=== PATIENT | female | born 1995 | race Caucasian/White ===

== ENCOUNTER 2022-09-17 16:24 | Outpatient (RCR) | payer OTHER, BC, SELFPAY ==
[2022-09-07 10:56] VITALS: BP 115/65; PULSE 110
[2022-09-17 17:07] VITALS: BP 109/70; PULSE 83
== END 2022-09-26 07:39 | disposition home or self-care (01) ==
LOC: ANHOBOP 16:24
PROVIDERS: Visit Provider Obstetrics & Gynecology
DX: O26.893 Other specified pregnancy related conditions, third trimester (principal); L29.9 Pruritus, unspecified; Z3A.37 37 weeks gestation of pregnancy; Z3A.38 38 weeks gestation of pregnancy
CPT/HCPCS: 59025

== ENCOUNTER 2022-09-22 05:03 | Inpatient (IN) | payer OTHER, BC, SELFPAY ==
[2022-09-22] VITALS (79 sets, daily range): BP systolic 70–135; BP diastolic 39–86; PULSE 68–105; RESP 16; TEMP 36.2–37.3; O2SAT 97–100; BMI 37.0
--- NOTE | 2022-09-22 05:21 | LDADM ---
This patient, Jolanta Dyer, was admitted to Labor/Delivery/Recovery 106 on 09/22/22 at 05:03. Plans for labor, pain management and were discussed with patient. Patient/family oriented to hospital policies and general routines including ID bracelet, bed and alarms, visiting hours, pain management, procedures, bathroom and other care routines, personal items, smoking policy, room service/diet and guest tray routines, security routines, and visiting hours. Patient/Family are encouraged to report perceived risks to care and to ask questions if they do not understand what they are told or what they should do. See OBIX for further documentation.
[2022-09-22 05:40] LABS: Basophils Percent Auto 0.4 % (0.2-1.2); Eosinophils Absolute Auto 0.1 K/mm3 (0-0.3); Eosinophils Percent Auto 0.7 % (0-4.4); Hematocrit 36.3 % (37.0-47.0); Hemoglobin 12.6 g/dL (12.0-15.0); Immature Granulocyte Absolute 0.07 K/mm3 (0.00-0.031); Immature Granulocyte Percent A 0.7 % (0-0.5); Lymphocytes Absolute Auto 2.51 K/mm3 (0.9-3.2); Lymphocytes Percent Auto 24.2 % (18.3-44.2); Mean Corpuscular HGB Conc 34.7 g/dl (32-36); Mean Corpuscular Hemoglobin 29.6 pg (26-34); Mean Corpuscular Volume 85.2 fl (80-100); Monocytes Absolute Auto 0.6 K/mm3 (0.1-0.6); Monocytes Percent Auto 6.2 % (2.6-8.5); Neutrophils Percent Auto 67.8 % (45.5-73.1); Platelet Count Result 254 k/mm3 (150-375); Red Blood Count 4.26 M/mm3 (4.2-5.4); Red Cell Distribution Width 14.5 % (11.5-14.5); White Blood Count 10.4 K/mm3 (4.5-10.0)
[2022-09-22] MEDS: LACTATED RINGERS 1,000 ML 125 ML IV CONT ×3 (05:45→12:07)
[2022-09-22] MEDS: OXYTOCIN 30 UNITS/NS 500 ML 30 UNITS/500 ML BAG IV CONT (05:46)
--- NOTE | 2022-09-22 06:34 | WPDANESEPP ---
Anes - Eval Pre Procedure Procedure: labor epidural Date/Time: 09/22/22 06:34 Preop Diagnosis: pain during labor Pre Op Diagnosis: IOL Patient Data Age: 27 Gender: F Height: 1.68 m Weight: 104 kg Last Vital Signs Temp 37.3 C 09/22/22 05:30 Pulse 89 09/22/22 06:30 Resp 16 09/22/22 05:30 BP 133/83 09/22/22 06:30 O2 Del Method Room Air 09/22/22 05:20 Allergies Allergy/AdvReac Type Severity Reaction Status Date / Time No Known Drug Allergies Allergy Unknown Unknown Verified 09/22/22 05:30 Home Medications Medication Instructions Recorded Confirmed Type Classic 1 tablet DAILY 09/22/22 09/22/22 History Laboratory Tests 09/22/22 09/22/22 09/22/22 05:34 05:34 05:34 WBC 10.4 K/mm3 H K/mm3 (4.5-10.0) RBC 4.26 M/mm3 M/mm3 (4.2-5.4) Hgb 12.6 g/dL g/dL (12.0-15.0) Hct 36.3 % L % (37.0-47.0) MCV 85.2 fl fl (80-100) MCH 29.6 pg pg (26-34) MCHC 34.7 g/dl g/dl (32-36) RDW 14.5 % % (11.5-14.5) Plt Count 254 k/mm3 k/mm3 (150-375) MPV 10.0 fl fl (7.4-10.4) Immature Gran % (Auto) 0.7 % H % (0-0.5) Neut % (Auto) 67.8 % % (45.5-73.1) Lymph % (Auto) 24.2 % % (18.3-44.2) [place] % (Auto) 6.2 % % (2.6-8.5) Eos % (Auto) 0.7 % % (0-4.4) Baso % (Auto) 0.4 % % (0.2-1.2) Lymph # (Auto) 2.51 K/mm3 K/mm3 (0.9-3.2) [place] # (Auto) 0.6 K/mm3 K/mm3 (0.1-0.6) Eos # (Auto) 0.1 K/mm3 K/mm3 (0-0.3) Baso # (Auto) 0.0 K/mm3 K/mm3 (0.0-0.1) Abs Immat Gran (auto) 0.07 K/mm3 H K/mm3 (0.00-0.031) Absolute Neuts (auto) 7.0 K/mm3 H K/mm3 (1.3-6.7) Absolute Nucleated RBC 0.0 K/mm3 K/mm3 (0.0-0.012) Nucleated RBC % 0.0 % % (0.0-0.2) RPR Pending Blood Type O Positive Antibody Screen Pending Patient hx anesthesia problems: none Family hx anesthesia problems: none Results Review: All pre-operative results and documents have been reviewed as part of the pre-operative evaluation. [facility] Past Medical History Medical History (Updated 09/22/22 @ 06:35 by Samantha Bell CRNA) IUP (intrauterine ), incidental Obesity Family History Family History (Updated 09/02/22 @ 14:33 by Kermit Chavez RN) Other Unknown family medical history Social History Social History Smoking status: Never smoker Substance use: never Lack of Transportation: No Lack of Food: Never True Current Housing: I Have Housing Concerned About Future Housing: No Difficulty Paying Gas/Electric Bills: No Difficulty Paying for Meds: No Currently Unemployed: No Education: High School Diploma/GED Difficulty w/ Childcare or Family Care: No Spiritual care concerns: No Exam Day of Procedure 09/22/22 06:34
[2022-09-22 07:07] LABS: Rapid Plasma Reagin Non-Reactive (NonReactive)
--- NOTE | 2022-09-22 08:58 | WPDOBADMIT ---
Obstetrics - Admit Note Admission Note: record reviewed. Additions to the history and/or subsequent changes in the physical findings follow. 27 y/o at 39 1/7 weeks here desiring induction of labor. GBS neg. Starting to feel contractions. AVSS NST reactive TOCO: contractions every 2-4 min ABD soft, nontender, gravid, vertex EXT nontender Cervix 3/50/-2. AROM with clear fluid. A: IUP a term with favorable cervix. P: She desires induction of labor. Oxytocin. Anticiptate .
--- NOTE | 2022-09-22 11:54 | PM.OBPNLAB ---
Pain Control Date/time seen: 09/22/22 11:54 Comments: Epidural helping with pain. Pelvic Exam Dilation (cm): 5 Effacement (%): 80 station: -1 Contractions Contraction frequency: 3 Status status: Category l Assessment and Plan Comments: IUPC placed. Continue oxytocin. Anticipate .
--- NOTE | 2022-09-22 14:20 | PM.OBPRVD ---
OB - Delivery Note Procedure Delivery date: 09/22/22 Procedure: Induction of labor with Delivery monitor: External FHT, External Uterine and Internal Uterine Route of delivery: Laceration Description: Periurethral (bilaterally) Delivery repair: vicryl (3-0) Specimen: Yes (cord blood) Quantitative Blood Loss (ml): 220 Anesthesia type: Epidural Disposition: PACU Complications: None Narrative: 27 y/o at 39 1/7 weeks gestation who presented to the hospital for induction of labor. Oxytocin was administered intravenously. Amniotomy was performed with return of clear fluid. She received an epidural for pain control. Her labor progressed and her cervix dilated completely. She pushed with good effort and delivered the 's head to the perineum, followed by the body. The nose and mouth were bulb suctioned. After a delay, the cord was clamped and cut. The was handed off the field. Cord blood was collected. The placenta delivered spontaneously and was grossly normal in appearance. The usual 3 vessel cord was noted. Bilateral periurethral lacerations were reapproximated using 3 0 Vicryl in interrupted [id number] fashion. Excellent hemostasis resulted as did excellent reapproximation of the normal anatomy. Needle and instrument counts were correct. The patient was taken to recovery room in stable condition. The went to the nursery in stable condition. I was present and scrubbed for the entire delivery. [place] Baby Date of : 09/22/22 Time of : 14:04 Weeks of gestation at delivery: 39 gender: Male Weight (pounds): 7 Weight (ounces): 8 presentation: vertex position: Right Occiput Anterior Placenta delivery description: Spontaneous and Normal Configuration Cord Vessel Description: 3 Vessels and Delayed Cord Clamping score one minute: 8 score five minutes: 9
--- NOTE | 2022-09-22 14:22 | P.DS_ITS ---
DS: Admitting Diagnosis Discharge Date 09/23/22 Admitting Diagnosis IUP at 39 1/7 weeks DS: Discharge Diagnosis Discharge Diagnosis (1) (normal spontaneous vaginal delivery): Code(s): O80 - Encounter for full-term uncomplicated delivery Status: Acute OB - DS: Summary OB Procedures : None OB Procedures Intrapartum: Spontaneous Vag Delivery OB Procedures: : None Time Spent with Patient Time attestation: Total time spent providing and/or coordinating discharge services: DS: Data Data Completed and Pending Labs on day of discharge: Labs from last 24 hours 09/22/22 09/22/22 09/22/22 05:34 05:34 05:34 WBC 10.4 H RBC 4.26 Hgb 12.6 Hct 36.3 L MCV 85.2 MCH 29.6 MCHC 34.7 RDW 14.5 Plt Count 254 MPV 10.0 Immature Gran % (Auto) 0.7 H Neut % (Auto) 67.8 Lymph % (Auto) 24.2 [place] % (Auto) 6.2 Eos % (Auto) 0.7 Baso % (Auto) 0.4 Lymph # (Auto) 2.51 [place] # (Auto) 0.6 Eos # (Auto) 0.1 Baso # (Auto) 0.0 Abs Immat Gran (auto) 0.07 H Absolute Neuts (auto) 7.0 H Absolute Nucleated RBC 0.0 Nucleated RBC % 0.0 RPR Non-reactive Blood Type O Positive Antibody Screen Negative Discharge Plan Discharge Attending physician on discharge: Jus Parnell Discharging Clinician: Jus Parnell Patient Disposition: Home, Self-Care Activity: pelvic rest Diet: regular Discharge Instructions: Call or return if temperature above 100.4? F, increased abdominal pain, increased vaginal bleeding or any new problems. Stand Alone Forms: General Discharge Information Follow-up/Referrals: Jus Parnell MD [Physician] - 6 Weeks Discharge Medications: New ibuprofen 600 mg tablet 600 mg PO Q6H PRN (Reason: cramps) Qty: 30 0RF Continued Classic 1 tablet DAILY Date of admission: 09/22/22 05:03 Primary Care Provider: UNKNOWN,DOCTOR Admitting Provider: Jus Parnell Attending physician on admission: Jus Parnell Condition: Stable
[2022-09-22] MEDS: OXYTOCIN 30 UNITS/NS 500 ML 30 UNITS/500 ML BAG 125 UNITS IV CONT (14:35)
[2022-09-22] MEDS: BENZOCAINE 20% AER SPR (*SP) 56 GM CAN 1 SPRAY TOPICAL (16:32)
[2022-09-22] MEDS: WITCH HAZEL 40 PADS 1 PAD TOPICAL (16:32)
--- NOTE | 2022-09-22 19:33 | OBPPTRN ---
1701 Patient transferred to post room #292 via W/C. Support person present. Oriented to unit, room, information board, rooming in, admission packet and security measures. Patient verbalizes understanding.
[2022-09-22] MEDS: IBUPROFEN 600 MG TABLET PO (19:57)
[2022-09-23] MEDS: IBUPROFEN 600 MG TABLET PO ×2 (04:35→11:46)
[2022-09-23 04:46] LABS: Hematocrit 31.2 % (37.0-47.0); Hemoglobin 10.7 g/dL (12.0-15.0)
[2022-09-23 07:50] VITALS: BP 116/70; PULSE 79; RESP 16; TEMP 37.3; O2SAT 100
--- NOTE | 2022-09-23 08:06 | WPDANLDPN2 ---
Anes-Prog Note L&D Date/Time: 09/23/22 08:06 Comfortable throughout: labor Neuraxial method: epidural Epidural/Spinal procedure site: clean & non-tender Neuro status: Neuro function grossly intact. Cardiovascular status: normal Respiratory status: normal Airway patency: baseline Mental status: baseline Post-Op hydration status: normal Vital Signs: Last Vital Signs Temp 98.1 F 09/22/22 17:20 Pulse 86 09/22/22 17:20 Resp 16 09/22/22 17:20 BP 127/73 09/22/22 17:20 Pulse Ox 100 09/22/22 17:20 O2 Del Method Room Air 09/22/22 17:20 Pain score (VAS): 3 I/O: Intake & Output 09/22/22 09/23/22 09/23/22 23:59 07:59 15:59 Intake Total 500 Balance 500 Post-procedural complaints: none Patient feedback: Patient satisfied with anesthetic care.
[2022-09-23] MEDS: DOCUSATE SODIUM 100 MG CAPSULE PO (08:43)
[2022-09-23] MEDS: MULTIVIT/MIN/PREN/FOL AC/IRON TABLET 1 TAB PO (08:43)
[2022-09-23] MEDS: ACETAMINOPHEN 325 MG TABLET 650 MG PO (08:43)
--- NOTE | 2022-09-23 11:07 | PC.NURSE ---
[id number] Consulted with patient to assess needs related to per request. Mother works well with her demonstrating effectively on the left breast using cross cradle positioning. Reviewed working with infant, supporting breast and how to protect the nipples with an optimal deep latch, good positioning, and good hand washing. Encouraged understanding the benefits of skin to skin, stimulating with massage touch, responding to feeding cues, frequencies of feeding 8-12 times in 24 hours (approximately 2-3 hours), duration of feedings, milk production, intake/output feeding sheet and signs of adequate intake encouraging swallowing at the breast. Education given to the parents of how to visualize suck/swallow ratios and listen for drinking at the breast. Infant was able to maintain latch without discomfort to mother. Occasionally, after a suck/swallow and pause the infant would make a clicking noise 1-2 times when initiating the sucking again. Nipple care reviewed with optimal latch, good positioning and using clean hands when feeding her infant and touching her breast. Reviewed keeping her infant close to her body with support. Resources used to facilitate learning were used from the tool, mom and baby guide. Parents voiced understanding of the education shared, discussed that she had watched videos to learn how to breastfeed, knowing when to call for assistance if the infant does not latch or if there is discomfort with . Reported to the primary RN.
--- NOTE | 2022-09-23 11:12 | PC.NURSE ---
late entry - [id number] Introductions were made, then consulted with patient to assess needs related to . Mother led the conversation with her?plans to feed?her infant and the?experience so far. Resources provided for inpatient and outpatient services with the mom/baby guide. Mother voiced understanding of information and will call if there is a request for assistance. Reported to the primary RN.
[2022-09-23 12:03] VITALS: BP 113/66; PULSE 80; RESP 16; TEMP 37.3; O2SAT 98
--- NOTE | 2022-09-23 14:01 | PM.OBPNVD ---
OB - PN: Subj Subjective Date/time seen: 09/23/22 14:01 Narrative: Pain OK. Would likie circumcision for son. Would like to go home. OB - PN: Obj Data Labs 09/23/22 04:39 Labs: Laboratory Results - last 24 hr 09/23/22 04:39 Hgb 10.7 L Hct 31.2 L OB - PN A/P Plan day: 1 Comments: A: PPD#1, doing well. P: Reviewed circ. Home to f/u 6 weeks. Exam Psych: Other: AVSS ABD soft, nontender, fundus firm EXT nontender
[2022-09-24 11:25] VITALS: BP 132/78; PULSE 86; RESP 20; TEMP 37.2; O2SAT 99
== END 2022-09-23 15:42 | disposition home or self-care (01) | DRG 807 ==
LOC: ANHLDR 14:23 → ANHOB2 17:09
PROVIDERS: Admitting Provider Obstetrics & Gynecology; Visit Provider Obstetrics & Gynecology
DX: O71.82 Other specified trauma to perineum and vulva (principal); Z37.0 Single live birth; Z3A.39 39 weeks gestation of pregnancy
CPT/HCPCS: 36415; 85014; 85018; 85025; 86592; 86850; 86900; 86901; A9270; J2590; J2795; J7120

== ENCOUNTER 2025-05-26 13:42 | Emergency (ER) | payer OTHER, SELFPAY ==
[2025-05-26 13:52] VITALS: BP 123/75; PULSE 101; RESP 18; TEMP 36.8; O2SAT 100
--- NOTE | 2025-05-26 13:58 | ED_ITS ---
HPI - Female Genitourinary General Chief complaint: Urogenital-Female Stated complaint: UTI Time Seen by Provider: 05/26/25 13:58 Source: patient, RN notes reviewed and old records reviewed Mode of arrival: ambulatory Limitations: no limitations History of Present Illness HPI Narrative: 30 year old female who presents to [facility] care with complaints of 6-7 day history of malodorous urine and some low back discomfort. Patient reports that she has no burning with urination or pain with urination. Patient reports that she has been using the heating pad to her back MD elicited complaint: UTI Onset (ago): day(s) (6-7) Location of symptoms: low back Severity: moderate Severity scale (1-10): 5 Quality of pain: aching Vaginal discharge: none Vaginal bleeding: none Treatment prior to arrival: other (heat to back) Related Data Allergies Allergy/AdvReac Type Severity Reaction Status Date / Time No Known Drug Allergies Allergy Unknown Unknown Verified 05/26/25 13:56 Review of Systems Review of Systems: CONSTITUTIONAL: Denies fever, chills, or sweats. CARDIOVASCULAR: Denies chest pain, palpitations, or edema. RESPIRATORY: Denies cough or dyspnea. GASTROINTESTINAL: Denies abdominal pain, nausea, vomiting, or diarrhea. GENITOURINARY: Reports no dysuria, frequency, urgency, state urine smells bad, Denies flank pain or hematuria. SKIN: Denies rash or itching. MUSCULOSKELETAL: reports back pain or myalgia. Denies CVA tenderness NEUROLOGIC: Denies headache All systems reviewed & are unremarkable except as noted in HPI and below PMFSH Past Medical History Medical History (Updated 05/26/25 @ 14:08 by Galina Vitale NP) Obesity IUP (intrauterine ), incidental Family History Family History (Updated 09/02/22 @ 14:33 by Kermit Chavez RN) Other Unknown family medical history Social History Social History Smoking status: Never smoker Substance use: never Lack of Transportation: No Lack of Food: Never True Current Housing: I Have Housing Concerned About Future Housing: No Difficulty Paying Gas/Electric Bills: No Difficulty Paying for Meds: No Currently Unemployed: No Education: High School Diploma/GED Difficulty w/ Childcare or Family Care: No Spiritual care concerns: No Comments At time of signature, agree with nursing past medical, surgical, social and family history. There is no relevant family history pertinent to the presenting complaint Exam Narrative: GENERAL: Well-appearing, well-nourished, and in no acute distress. HEAD: Normocephalic, atraumatic. NECK: Supple.no lymphadenopathy CHEST: Clear to auscultation. No respiratory distress. HEART: Regular rate and rhythm. No murmur heard. Normal peripheral pulses. ABDOMEN: Soft, nontender, nondistended, normal active bowel sounds. No CVA tenderness reports pain to lower back area and urine being malodorous EXTREMITIES: Normal range of motion. No edema. SKIN: Warm, dry, no rash. NEURO: No focal deficits. Alert and oriented x3. Course Course Emergency Course: Patient is aware of diagnosis, understands and agrees to treatment plan.? Anticipatory guidance given.? Patient agrees to follow-up as directed and is aware of reasons to seek care at the emergency department. Portions of this record may have been created with voice recognition software Level of Care: Express Care Visit Vital Signs Vital signs: Vital Signs Temperature 36.8 C 05/26/25 13:52 Pulse Rate 101 H 05/26/25 13:52 Respiratory Rate 18 05/26/25 13:52 Blood Pressure 123/75 05/26/25 13:52 Pulse Oximetry 100 05/26/25 13:52 Oxygen Delivery Room Air 05/26/25 13:52 Temperature 36.8 C 05/26/25 13:52 Pulse Rate 101 H 05/26/25 13:52 Respiratory Rate 18 05/26/25 13:52 Blood Pressure 123/75 05/26/25 13:52 Pulse Oximetry 100 05/26/25 13:52 Oxygen Delivery Room Air 05/26/25 13:52 reviewed MDM - Female Genitourinary MDM Narrative Medical decision making narrative: Exam findings and UA show no acute concerns or changes; patient is non-toxic appearing and is in no distress.? Patient is appropriate for outpatient treatment and follow-up. Differential Diagnosis Differential diagnosis: Likely urinary tract infection, cystitis and other (dysuria, back pain) Medical Records Attestation: I reviewed the patient's medical records. Lab Data Attestation: I reviewed the patient's lab results. Lab results narrative: Urine dip; urine dark cloudy glucose negative, bilirubin negative, ketone negative specific gravity 1.015, blood 1+, blood pH 6.0, protein 1+, u robilinogen 0.2 nitrate positive leukocyte 2+ Labs: Lab Results 05/26/25 Range/Units 14:00 POC Urine Color Dark POC Urine Clarity Cloudy POC Urine pH 6.0 POC Ur Specif [place] 1.015 POC Urine Protein 1+ (Negative) POC Ur Glucose (UA) Negative (Negative) POC Urine Ketones Negative (Negative) POC Urine Blood 1+ (Negative) POC Urine Nitrite Positive (Negative) POC Urine Bilirubin Negative (Negative) POC Urine Urobilinogen 0.2 POC U Leukocyte Esteras 2+ (Negative) reviewed Critical Care Time Critical Care Time Critical Care Time: No Discharge Plan Discharge Clinical Impression: Urinary tract infection Qualifiers: Urinary tract infection type: site unspecified Hematuria presence: with hematuria Qualified Code(s): N39.0 - Urinary tract infection, site not specified Patient Disposition: Home Condition: Stable Instructions: Antibiotic Form, Urinary Tract Infection in Women (ED) Additional Instructions: Increase fluids especially cranberry juice and water Avoid caffeine and carbonated beverages Antibiotic as directed take all doses of medication Tylenol/ibuprofen for pain or fever Follow-up with her primary care provider if further problems or concerns Recheck if you have fever over 101, nausea and vomiting. If your symptoms persist, change or worsen significantly before you can contact your personal physician then please, without delay, go to the emergency d epartment for further evaluation. Follow-up with PCP in 7-10 days or sooner if needed Patient Language: Bulgarian Prescriptions: New amoxicillin-pot clavulanate 875-125 mg tablet 1 tablet PO Q12H Qty: 20 0RF Rx Instructions: Recommend taking with food recommend either eating Activia yogurt or taking a probiotic while on this medication Follow-up/Referrals: Jus Parnell MD [Primary Care Provider, ASSOC[employer]ATE FINANCIAL ADVISOR] Time of Disposition: 14:07 Quality [place] Coma Scale Eyes: Open Verbal: Oriented and Alert Motor: Follows Commands Malini Coma Total Score: 15
[2025-05-26 14:03] LABS: EDUAAPPEAR Cloudy; EDUABILI Negative (Negative); EDUABLOOD 1+ (Negative); EDUACOLOR1 Dark; EDUAGLUCOSE Negative (Negative); EDUAKETONE Negative (Negative); EDUALEUKO 2+ (Negative); EDUANITRATE Positive (Negative); EDUAPH 6.0; EDUAPROTEIN 1+ (Negative); EDUASPGRAVITY 1.015; EDUAUROBILI 0.2
== END 2025-05-26 14:15 | disposition home or self-care (01) ==
PROVIDERS: Emergency Provider Registered Nurse; PCP Obstetrics & Gynecology
DX: N39.0 Urinary tract infection, site not specified (principal); E66.9 Obesity, unspecified; Z68.24 Body mass index [BMI] 24.0-24.9, adult; Z97.5 Presence of (intrauterine) contraceptive device
CPT/HCPCS: 81003; 87086; 87186; 99213; G0463